=== PATIENT | male | born 2000 | race Caucasian/White ===

== ENCOUNTER 2023-08-25 15:25 | Emergency (ER) | payer BC ==
[~2023-08-25] VITALS: Ht 185.4 cm; Wt 113.4 kg
[2023-08-25 15:31] VITALS: O2SAT 98
[2023-08-25] MEDS ORDERED: KETOROLAC TROMETHAMINE 60 MG INJ IM ONE (15:51)
[2023-08-25 15:57] LABS: BASOPHILS # (AUTO) 0.1 K/UL (0.0-0.2); BASOPHILS % (AUTO) 0.7 % (0.0-2.0); EOSINOPHILS # (AUTO) 0.2 K/uL (0.0-0.7); EOSINOPHILS % (AUTO) 1.8 % (0.0-7.0); HEMATOCRIT 42.9 % (36.7-47.1); HEMOGLOBIN 14.8 g/dL (12.5-16.3); LYMPHOCYTES # (AUTO) 2.8 K/uL (0.8-4.8); LYMPHOCYTES % (AUTO) 25.1 % (20.5-51.5); MEAN CORPUSCULAR HEMOGLOBIN 28.6 uug (23.8-33.4); MEAN CORPUSCULAR HGB CONC 35 g/dL (32.5-36.3); MEAN CORPUSCULAR VOLUME 82.7 fL (73.0-96.2); MONOCYTES # (AUTO) 0.7 K/uL (0.1-1.30); MONOCYTES % (AUTO) 6.7 % (0.0-11.0); NEUTROPHILS # (AUTO) 7.2 K/uL (1.8-8.9); NEUTROPHILS % (AUTO) 65.7 % (38.5-71.5); PLATELET COUNT (AUTO) 278 K/uL (152-348); RED BLOOD CELL COUNT(AUTO) 5.19 MIL/uL (4.06-5.63); RED CELL DISTRIBUTION WIDTH 13.9 % (12.1-16.2)
[2023-08-25] MEDS: KETOROLAC TROMETHAMINE 60 MG INJ IM ONE (15:57)
[2023-08-25 16:15] LABS: CALCIUM 9.2 mg/dL (8.5-10.1); CREATININE 0.8 mg/dL (0.6-1.3); POTASSIUM 3.5 mmol/L (3.5-5.1)
[2023-08-25 16:18] LABS: MAGNESIUM 2.1 mg/dL (1.8-2.4); URIC ACID 9.3 mg/dL (3.5-7.2)
[2023-08-25 16:19] LABS: DIFFERENTIAL COMMENT 1
[2023-08-25] MEDS ORDERED: INDO50CA92 PO (16:23)
== END 2023-08-25 17:02 | disposition home or self-care (01) ==
LOC: ER 15:30
DX: M10.9 Gout, unspecified (principal); E88.810 Metabolic syndrome; I10 Essential (primary) hypertension; Z79.899 Other long term (current) drug therapy
CPT/HCPCS: 36415; 83735; 84550; 85025; A4606; A4663; J1885

== ENCOUNTER 2024-03-20 13:09 | Emergency (ER) | payer BC ==
[~2024-03-20] VITALS: Ht 182.9 cm; Wt 115.7 kg
[~2024-03-20 13:09] MED LIST: INDO50CA92 PO
[2024-03-20] MEDS ORDERED: IBUP-1955 PO (16:07)
[2024-03-20] MEDS ORDERED: KETOROLAC TROMETHAMINE 15 MG INJ ONE (16:15)
[2024-03-20] MEDS: KETOROLAC TROMETHAMINE 15 MG INJ IM ONE (16:19)
[2024-03-20 16:33] VITALS: BP 134/88; TEMP 98; O2SAT 99
== END 2024-03-20 16:33 | disposition home or self-care (01) ==
LOC: ER 13:09
DX: M25.572 Pain in left ankle and joints of left foot (principal); M25.472 Effusion, left ankle; M10.9 Gout, unspecified
CPT/HCPCS: 73610; 73630; A4606; A4663; J1885

== ENCOUNTER 2025-02-01 13:20 | Emergency (ER) | payer BC ==
[~2025-02-01] VITALS: Ht 185.4 cm; Wt 119.3 kg
[~2025-02-01 13:20] MED LIST changes: +IBUP-1955 PO
[2025-02-01 13:23] VITALS: BP 134/79
[2025-02-01] MEDS ORDERED: INDO50CA91 PO (14:30)
[2025-02-01] MEDS ORDERED: KETOROLAC TROMETHAMINE 30 MG INJ ONE (14:40)
[2025-02-01] MEDS: KETOROLAC TROMETHAMINE 30 MG INJ IM ONE (14:43)
[2025-02-01 14:50] VITALS: BP 134/79; O2SAT 97
== END 2025-02-01 14:50 | disposition home or self-care (01) ==
LOC: ER 13:20
DX: M10.072 Idiopathic gout, left ankle and foot (principal)
CPT/HCPCS: A4606; A4663; J1885

== ENCOUNTER 2025-02-22 20:51 | Emergency (ER) | payer BC ==
[~2025-02-22] VITALS: Ht 185.4 cm; Wt 115.7 kg
[~2025-02-22 20:51] MED LIST changes: +INDO50CA91 PO
[2025-02-22 20:52] VITALS: BP 131/80
[2025-02-22] MEDS ORDERED: LOSA100T31 PO (21:02)
[2025-02-22] MEDS ORDERED: KETOROLAC TROMETHAMINE 30 MG INJ ONE (21:17)
[2025-02-22] MEDS: KETOROLAC TROMETHAMINE 30 MG INJ IM ONE (21:20)
[2025-02-22] MEDS ORDERED: INDO50CA92 PO (21:24)
[2025-02-22] MEDS ORDERED: HYDROCODONE/APAP 10-325 MG TABLET ONE (21:25)
[2025-02-22] MEDS: HYDROCODONE/APAP 10-325 MG TABLET PO ONE (21:29)
[2025-02-22] MEDS ORDERED: PRED20TA PO (21:30)
[2025-02-22 21:41] VITALS: BP 131/80; TEMP 98; O2SAT 96
== END 2025-02-22 21:42 | disposition home or self-care (01) ==
LOC: ER 20:51
DX: R22.42 Localized swelling, mass and lump, left lower limb (principal); M10.9 Gout, unspecified; M25.572 Pain in left ankle and joints of left foot; F17.200 Nicotine dependence, unspecified, uncomplicated; Z79.52 Long term (current) use of systemic steroids; Z79.899 Other long term (current) drug therapy
CPT/HCPCS: A4606; A4663; J1885